=== PATIENT | male | born 1950 | race Caucasian/White ===

== ENCOUNTER 2018-02-03 10:27 | Day surgery (SDC) | payer MEDICARE, BC ==
[2018-02-03] MEDS ORDERED: DEXAMETHASONE SOD PHOS PF 10 MG/ML SOL IJ ONE (12:03)
[2018-02-03] MEDS ORDERED: BUPIVACAINE HCL 0.5% MPF 10 ML SOL ONE (12:03)
[2018-02-03 12:53] VITALS: BP 156/73; PULSE 58; RESP 16; TEMP 97.8; O2SAT 97
== END 2018-02-03 12:59 | disposition home or self-care (01) | DRG 552 ==
LOC: SURG 10:27
PROVIDERS: ATTEND Nurse Anesthetist, Certified Registered
DX: M48.061 Spinal stenosis, lumbar region without neurogenic claudication (principal); M48.07 Spinal stenosis, lumbosacral region
CPT/HCPCS: J1100

== ENCOUNTER 2018-03-18 07:00 | Day surgery (SDC) | payer MEDICARE, BC ==
[2018-03-18] MEDS ORDERED: TRIAMCINOLONE ACETONIDE 40 MG/ML SUS ONE (07:32)
[2018-03-18] MEDS ORDERED: BUPIVACAINE HCL 0.25% MPF 30 ML SOL INFIL ONE (07:32)
[2018-03-18 08:30] VITALS: BP 135/73; PULSE 58; RESP 20; TEMP 97.6; O2SAT 96
== END 2018-03-18 08:45 | disposition home or self-care (01) | DRG 552 ==
LOC: SURG 07:00
PROVIDERS: ATTEND Nurse Anesthetist, Certified Registered
DX: M51.17 Intervertebral disc disorders with radiculopathy, lumbosacral region (principal)
CPT/HCPCS: J3300